=== PATIENT | male | born 1955 | race Caucasian/White ===

== ENCOUNTER → 2023-11-28 10:38 | Outpatient (BNVA) | payer MEDICARE, SELFPAY | PROVIDERS: PCP Family Medicine; Visit Provider Internal Medicine Cardiovascular Disease | DX: I21.09 ST elevation (STEMI) myocardial infarction involving other coronary artery of anterior wall (principal); R07.9 Chest pain, unspecified; R06.02 Shortness of breath; I48.91 Unspecified atrial fibrillation; R94.31 Abnormal electrocardiogram [ECG] [EKG] | CPT/HCPCS: 36415; 80048; 83880; 93005; 99204 ==

== ENCOUNTER 2023-12-18 14:53 | Outpatient (CLI) | payer MEDICARE, SELFPAY ==
--- NOTE | 2023-12-18 15:30 | CTR_ITS ---
PROCEDURE INFORMATION: Exam: CTA Abdomen and Pelvis With Contrast Exam date and time: 12/18/2023 3:19 PM Age: 68 years old Clinical indication: Condition or disease; Other: Aaa; Prior surgery; Surgery date: 6+ months; Surgery type: Appt, stent, graft TECHNIQUE: Imaging protocol: Computed tomographic angiography of the abdomen and pelvis with contrast. Exam focused on the arteries. 3D rendering (Not supervised by radiologist): MIP and/or 3D reconstructed images were created by the technologist. Radiation optimization: All CT scans at this facility use at least one of these dose optimization techniques: automated exposure control; mA and/or kV adjustment per patient size (includes targeted exams where dose is matched to clinical indication); or iterative reconstruction. Contrast material: OMNI 350; Contrast volume: 125 ml; Contrast route: INTRAVENOUS (IV); COMPARISON: No relevant prior studies available. RADIATION DOSE METRICS: Total DLP (mGy-cm): 640.78 FINDINGS: Aorta: Partially imaged distal thoracic aortic stent, with mild mid descending thoracic aorta posterolateral intraluminal mural thrombus (6.9 mm in maximal thickness), distal descending thoracic aortic near circumferential intraluminal mural thrombus (6.7 mm thickness). Celiac trunk and mesenteric arteries: The left gastric artery and splenic arteries demonstrate separate origins from the left proximal abdominal aorta, normal variant. Intimal dissection begins at this level (broad fenestration, equal luminal opacification), with the false lumen to the patient's left supplying the left gastric artery and splenic artery, and the dissection flap extending into the combined celiac/mesenteric artery, with the hepatic artery supplied by the true lumen (potential flow limitation; series 7, images 64-61), and the SMA supplied by both the true (small) and false (dominant) lumens, with significant caliber reduction. The jejunal vessels are supplied by the true lumen, the false lumen supplies the ileal and ileocolic vessels. The middle colic artery appears to be supplied by the false lumen. The inferior mesenteric artery arises from the false lumen. Renal arteries: The bilateral single renal arteries are supplied by the true lumen, with moderate narrowing of the left renal artery as it penetrates/crosses the false lumen (series 9, images 80-79). Right iliac arteries: The right common iliac artery is supplied by the true and false lumen, with the dissection ending approximately 15 mm beyond the internal iliac artery origin (supplied by the true lumen). Left iliac arteries: The true and false lumen supply the left common iliac artery, with the dissection ending approximately 18 mm beyond the aortic bifurcation. Veins: Left pelvic calcified phleboliths. Liver: No mass. Gallbladder and biliary ducts: Irregular mild thickening of the gallbladder wall. Partially contracted lumen. No mass, or calculus identified. Pancreas: Unremarkable. No mass. No ductal dilation. Spleen: The spleen demonstrates several small calcifications consistent with healed granulomatous disease. Adrenal glands: Unremarkable. No mass. Kidneys and ureters: Unremarkable. No solid mass. No hydronephrosis. Stomach and bowel: Pancolonic diverticula are present without evidence of diverticulitis. Appendix: The vermiform appendix is not identified on this examination. There is, however, no pericecal abnormality to suggest appendicitis. Intraperitoneal space: No free air. No significant fluid collection. Lymph nodes: Unremarkable. No enlarged lymph nodes. Urinary bladder: Unremarkable. No mass. Reproductive: Unremarkable as visualized. Bones/joints: Mild L2-L3 retrolisthesis. L5-S1 spondylosis with bilateral neural foraminal stenosis. Lumbar spine vertebral body marginal osteophytes are noted at multiple levels. Soft tissues: Unremarkable. CT/CT angio abdomen pelvis [id number] IMPRESSION: 1. Partially imaged distal thoracic aortic stent. 2. Abdominal aortoiliac dissection as described. 3. Left renal artery stenosis as described. Clinical correlation (hypertension?) is recommended. 4. Potential hepatic artery stenosis as described. 5. Variant arterial anatomy as above. 6. Diverticulosis. THIS REPORT CONTAINS FINDINGS THAT MAY BE CRITICAL TO PATIENT CARE. The findings were verbally communicated by me to DR. PURA THOMAS via telephone conference at 5:17 PM CDT on 12/18/2023. The findings were acknowledged and understood.
[2023-12-18] MEDS: iohexol 350 mg/mL 500 mL Btl (per mL) IV (15:36)
== END 2023-12-18 14:54 | disposition home or self-care (01) ==
LOC: RAD 14:53
PROVIDERS: PCP Family Medicine; Visit Provider Internal Medicine Cardiovascular Disease
DX: I71.40 Abdominal aortic aneurysm, without rupture, unspecified (principal); Z95.828 Presence of other vascular implants and grafts; Z90.49 Acquired absence of other specified parts of digestive tract; I71.02 Dissection of abdominal aorta; Q27.1 Congenital renal artery stenosis; K57.90 Diverticulosis of intestine, part unspecified, without perforation or abscess without bleeding; M85.88 Other specified disorders of bone density and structure, other site; M25.78 Osteophyte, vertebrae
CPT/HCPCS: 74174

== ENCOUNTER 2024-01-04 14:54 | Outpatient (CLI) | payer MEDICARE, SELFPAY ==
--- NOTE | 2024-01-04 15:00 | USCV_ITS ---
Erwin Jo Age: 68 Gender: M : 1955 Exam Date: 01/04/2024 15:05 Ordering Phys: Candace Cerda MD ([email or web address]) Technologist: Exam Location: [facility] [place] Indication: BP: 150 / 70 HR: 81 Rhythm: Sinus Technical Quality: Adequate MEASUREMENTS (Male / Female) Normal Values 2D ECHO LV Diastolic Diameter PLAX 4.3 cm 4.2 - 5.9 / 3.9 - 5.3 cm IVS Diastolic Thickness 1.2 cm 0.6 - 1.0 / 0.6 - 0.9 cm IVS Systolic Thickness 1.5 cm LVPW Diastolic Thickness 1.4 cm 0.6 - 1.0 / 0.6 - 0.9 cm LVPW Systolic Thickness 2.2 cm LVOT Diameter 2.0 cm LV Ejection Fraction 2D Teich 62.9 % LV Ejection Fraction MOD 4C 60.1 % LV Ejection Fraction MOD 2C 64.6 % LV Ejection Fraction 2C AL 63.2 % LA Diameter 4.4 cm RA Systolic Volume 4C AL 27.8 ml RA Systolic Volume 4C MOD 26.4 ml Aorta at Sinotubular Diameter 3.3 cm M-MODE LA Ao Ratio MM 1.2 AV Cusp Separation MM 2.3 cm DOPPLER AV Peak Velocity 150.0 cm/s LVOT Peak Velocity 71.0 cm/s AV Area Cont Eq vti 2.4 cm squared AV Area Cont Eq pk 1.5 cm squared MV Peak Velocity 140.0 cm/s MV Area PHT 6.1 cm squared Mitral E to A Ratio 2.9 TV Peak Velocity 271.0 cm/s TR Peak Velocity 290.0 cm/s TR Peak Gradient 33.6 mmHg TV Peak E Velocity 89.0 cm/s Right Atrial Pressure 3.0 mmHg Pulmonary Artery Systolic Pressu 36.6 mmHg PV Peak Velocity 101.0 cm/s FINDINGS Left Ventricle Normal left ventricular size and systolic function, EF 62%.no regional wall motion abnormalities. Mild left ventricular hypertrophy. Right Ventricle The right ventricle is normal in size and function. Right Atrium Mildly increased right atrial size. Left Atrium Mildly increased left atrial size. Mitral Valve Trace mitral valve regurgitation. Aortic Valve Thickened aortic valve. Tricuspid Valve Trace tricuspid valve regurgitation. Pulmonic Valve Pulmonic valve not well visualized. Pericardium No pericardial effusion. Aorta Normal ascending aorta dimension. IVC Inferior vena cava not visualized. CONCLUSIONS Normal left ventricular size and systolic function, EF 62%.no regional wall motion abnormalities. Mild left ventricular hypertrophy. Mild biatrial enlargement. Trace of mitral and tricuspid regurgitation Thickened aortic valve. There is no pericardial effusion. There are no intracardiac masses. No similar previous studies are available for comparison Dr Candace Cerda MD FACC (Electronically Signed) Final Date: 11 January 2024 09:48 S
== END 2024-01-04 14:55 | disposition home or self-care (01) ==
LOC: RAD 14:56
PROVIDERS: PCP Family Medicine; Visit Provider Internal Medicine Cardiovascular Disease
DX: I35.0 Nonrheumatic aortic (valve) stenosis (principal); R06.09 Other forms of dyspnea
CPT/HCPCS: 93306

== ENCOUNTER → 2024-04-22 09:46 | Outpatient (BNVA) | payer MEDICARE, SELFPAY | PROVIDERS: PCP Family Medicine; Visit Provider Nurse Practitioner Family | DX: I48.20 Chronic atrial fibrillation, unspecified (principal); I10 Essential (primary) hypertension; I71.40 Abdominal aortic aneurysm, without rupture, unspecified; F17.210 Nicotine dependence, cigarettes, uncomplicated; E78.5 Hyperlipidemia, unspecified; R06.02 Shortness of breath; Z79.01 Long term (current) use of anticoagulants | CPT/HCPCS: 99214 ==

== ENCOUNTER → 2024-08-26 08:44 | Outpatient (BNVA) | payer MEDICARE, SELFPAY | PROVIDERS: PCP Family Medicine; Visit Provider Nurse Practitioner Family | DX: I48.20 Chronic atrial fibrillation, unspecified (principal); Z79.01 Long term (current) use of anticoagulants; I71.40 Abdominal aortic aneurysm, without rupture, unspecified; I10 Essential (primary) hypertension; E78.5 Hyperlipidemia, unspecified; J44.9 Chronic obstructive pulmonary disease, unspecified; F17.210 Nicotine dependence, cigarettes, uncomplicated; I71.00 Dissection of unspecified site of aorta | CPT/HCPCS: 36415; 80048; 99214 ==

== ENCOUNTER 2024-09-17 14:12 | Outpatient (CLI) | payer MEDICARE, SELFPAY ==
--- NOTE | 2024-09-17 14:38 | CT_ITS ---
WS: [id number] CTA CHEST ABDOMEN AND PELVIS TECHNIQUE: Noncontrast plus contrast enhanced CTA of the chest, abdomen, and pelvis with coronal and sagittal reformatted images and additional MIP Images. CLINICAL INFORMATION: I71.02 - Dissection of abdominal aorta COMPARISON: None. DLP: 1469.[address] scans at [facility] use at least one of these dose optimization techniques: automated exposure control; mA and/or kV adjustment per patient size (includes targeted exams where dose is matched to clinical indication); or iterative reconstruction. FINDINGS: Aortic arch and descending thoracic aorta stent graft. Normal caliber ascending thoracic aorta. Proximal main pulmonary arteries are patent. Subclavian arteries are patent. Normal caliber descending thoracic aorta with a small amount of peripheral mural thrombus. Chronic emphysematous changes. Normal variant separate origins of the LEFT gastric artery and splenic arteries from the abdominal aorta. Associated aortic dissection at this level with the false lumen eccentric to the LEFT supplying the LEFT gastric and splenic artery. Dissection flap extends into the celiac/SMA mesenteric combined origin with the hepatic artery supplied by the narrowed true lumen. Celiac/SMA is supplied by both the true and false lumens with stenosis. Approximate 50% stenosis in the celiac/SMA vessel distally which is new from previous. This is supplied by the false lumen. See image 177 series 9 Small bowel jejunal vessels are supplied by the true lumen. False lumen supplies the ileal and ileocolic vessels unchanged from previous. Middle colic artery supplied by the false lumen. Also the GAB arises from the false lumen. Bilateral renal arteries are patent and supplied by the true lumen. Moderate narrowing of the LEFT renal artery as it penetrates across the false lumen unchanged and remains patent. RIGHT iliac: RIGHT common iliac is supplied by the true and false lumen with dissection flap extending into the iliac artery bifurcation. External iliac is supplied by the true and false lumen. Internal iliac is supplied by the true lumen. LEFT iliac: The true and false lumen supply the LEFT common iliac artery with dissection flap extending 1.8 cm beyond the aortic bifurcation. This appears stable compared to previous. Small esophageal hiatal hernia. Gallbladder is contracted. Food products in the stomach. Fatty atrophy of the pancreas. Adrenal glands are normal. Normal renal parenchymal enhancement. No hydronephrosis. Splenic granulomas. Sigmoid diverticulosis. Normal bilateral renal parenchymal enhancement. CT/CT [facility] [id number] IMPRESSION: 1. 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 See image 177 series 9. 2. Otherwise no significant change in the abdominal aortic dissection detailed above. 3. Aortic stent graft involving the descending thoracic aorta with peripheral mural thrombus in the distal thoracic aorta appears unchanged where it was part ially visualized on the prior CTA abdomen/pelvis. 4. Lungs are well aerated. 5. No other new findings.
[2024-09-17] MEDS: iohexol 350 mg/mL 500 mL Btl (per mL) IV (16:01)
== END 2024-09-17 14:13 | disposition home or self-care (01) ==
LOC: RAD 14:15
PROVIDERS: PCP Family Medicine; Visit Provider Nurse Practitioner Family
DX: I71.00 Dissection of unspecified site of aorta (principal); I71.02 Dissection of abdominal aorta; I71.9 Aortic aneurysm of unspecified site, without rupture
CPT/HCPCS: 71275; 74174